=== PATIENT | male | born 1990 | race African-American/Black ===

== ENCOUNTER 2019-01-25 16:45 | Emergency (ER) | payer OTHER ==
[2019-01-25] MEDS ORDERED: ASPIRIN 81 MG CHEWABLE TABLETS PO ONE (16:49)
[2019-01-25 16:51] VITALS: BMI 53.1
--- NOTE | 2019-01-25 16:52 | PDOC ---
Rapid Medical Evaluation Chief Complaint: Shortness of Breath Time Seen by Provider: 01/25/19 16:47 Medical Evaluation: 01/25/19 16:48 28 year old male c/o left sided chest pain and shortness of breath since this morning. PE: patient alert ox, breath sounds clear, diaphoretic chest not tender A: chest pain P: labs EKG chest xray patient to the ER for further management of care Discharge Disposition - Diagnosis Chest pain Qualifiers: Chest pain type: chest pain on breathing Qualified Code(s): R07.1 - Chest pain on breathing; R07.81 - Pleurodynia - Referrals - Patient Instructions - Post Discharge Activity
--- NOTE | 2019-01-25 16:54 | PDOC ---
History of Present Illness - General Chief Complaint: Shortness of Breath Stated Complaint: SOB Time Seen by Provider: 01/25/19 16:47 - History of Present Illness Initial Comments: 28yo M with no signficant PMH presenting with chest pain. Patient states he work up with this pain which he describes as squeezing. While the pain was not bad when it started, it has gradually gotten worse and is now rated 8/10. Patient endorses shortness of breath. The pain gets worse upon taking a breath. It is non-palpable and non-radiating. No nausea or vomiting. Patient reports diaphoresis. He has never felt pain like this before. Took one advil but it provided no relief. Saw a special effects makeup artist upon recommendation by his primary care doctor and had a negative workup. Has never had a stress test or ECHO. Patient is <1ppd smoker x 3-4 years. No personal or family history of [place]. Patient drives long distances on a daily basis, up to 8 or 9 hours at a time. No hemoptysis, no recent surgical history, no hormone use, no history of DVT or PE. No fevers, chills, or abdominal pain. Past History - Past Medical History Allergies/Adverse Reactions: Allergies Allergy/AdvReac Type Severity Reaction Status Date / Time No Known Allergies Allergy Verified 01/25/19 16:51 Home Medications: Ambulatory Orders Azithromycin [Zithromax 250mg Tablets -] 250 mg PO DAILY #4 tab 01/25/19 COPD: No Other medical history: obesity - Suicide/Smoking/Psychosocial Hx Smoking History: Never smoked Information on smoking cessation initiated: No Hx Alcohol Use: No Drug/Substance Use Hx: No Review of Systems - Review of Systems Comments:: Constitutional: no fever, no chills HEENT: no throat pain, no dysphagia Cardiovascular: +chest pain, no palpitations Respiratory: no cough, +shortness of breath Gastrointestinal: no abdominal pain, no nausea Genitourinary: no dysuria, no frequency Musculoskeletal: no myalgia, no arthralgia Skin: no rash, no itching Neurologic: no headache, no weakness *Physical Exam - Vital Signs Last Vital Signs Temp Pulse Resp BP Pulse Ox 99.7 F H 97 H 18 141/75 97 01/25/19 16:48 01/25/19 16:48 01/25/19 16:48 01/25/19 16:48 01/25/19 16:48 - Physical Exam Comments: General: Awake, alert, and fully oriented, in no acute distress, morbidly obese Head: No signs of trauma, diaphoretic Eyes: EOMI, sclera anicteric ENT: Moist mucus membranes Neck: Normal ROM, supple Lungs: Lungs clear, Normal breath sounds Cardio: Regular rhythm, S1 and S2 present Abdomen: Soft, nontender Extremities: Normal range of motion, Distal pulses present, No calf tenderness bilaterally SKIN: Warm, Dry, normal turgor Neurologic: Cranial nerves II through XII grossly intact. Normal speech ED Treatment Course - LABORATORY CBC & Chemistry Diagram: 01/25/19 17:30 01/25/19 17:30 Medical Decision Making - Medical Decision Making 28yo M with no signficant PMH presenting with chest pain. DDX including but not limited to ACS, PE, PNA, MSK, GERD EKG: rate 100, NSR, with s1q3t3 pattern (no prior EKGs available) Increased suspicion for PE given this sign of R. heart strain CBC WBC 11.6 K/mm3 (4.0-10.0) H 01/25/19 17:30 RBC 4.76 M/mm3 (4.00-5.60) 01/25/19 17:30 Hgb 12.5 GM/dL (11.7-16.9) 01/25/19 17:30 Hct 39.2 % (35.4-49) 01/25/19 17:30 MCV 82.2 fl (80-96) 01/25/19 17:30 MCH 26.2 pg (25.7-33.7) 01/25/19 17:30 MCHC 31.9 g/dl (32.0-35.9) L 01/25/19 17:30 RDW 15.4 % (11.9-15.9) 01/25/19 17:30 Plt Count 169 K/MM3 (134-434) 01/25/19 17:30 MPV 8.0 fl (7.5-11.1) 01/25/19 17:30 Absolute Neuts (auto) 7.3 K/mm3 (1.5-8.0) 01/25/19 17:30 Neutrophils % 62.4 % (42.8-82.8) 01/25/19 17:30 Lymphocytes % 25.8 % (8-40) D 01/25/19 17:30 Monocytes % 10.2 % (3.8-10.2) 01/25/19 17:30 Eosinophils % 0.6 % (0-4.5) 01/25/19 17:30 Basophils % 1.0 % (0-2.0) 01/25/19 17:30 Nucleated RBC % 0 % (0-0) 01/25/19 17:30 Slight leukocytosis, WBC=11.6 No anemia CMP Sodium 139 mmol/L (136-145) 01/25/19 17:30 Potassium 4.4 mmol/L (3.5-5.1) 01/25/19 17:30 Chloride 105 mmol/L (98-107) 01/25/19 17:30 Carbon Dioxide 30 mmol/L (21-32) 01/25/19 17:30 Anion Gap 4 MMOL/L (8-16) L 01/25/19 17:30 BUN 12 mg/dL (7-18) 01/25/19 17:30 Creatinine 0.9 mg/dL (0.55-1.3) 01/25/19 17:30 Est GFR (CKD-EPI)AfAm 133.30 01/25/19 17:30 Est GFR (CKD-EPI)NonAf 115.01 01/25/19 17:30 Random Glucose 102 mg/dL (74-106) 01/25/19 17:30 Calcium 8.6 mg/dL (8.5-10.1) 01/25/19 17:30 Magnesium 2.3 mg/dL (1.8-2.4) 01/25/19 17:30 Total Bilirubin 0.3 mg/dL (0.2-1) 01/25/19 17:30 AST 47 U/L (15-37) H 01/25/19 17:30 ALT 77 U/L (13-61) H 01/25/19 17:30 Alkaline Phosphatase 83 U/L (45-117) 01/25/19 17:30 Creatine Kinase 176 U/L (26-308) 01/25/19 17:30 Creatine Kinase Index 0.5 % (0.0-5.0) 01/25/19 17:30 CK-MB (CK-2) < 1.0 ng/mL (0.5-3.6) 01/25/19 17:30 Troponin I < 0.02 ng/ml (0.00-0.05) 01/25/19 17:30 Total Protein 8.0 g/dl (6.4-8.2) 01/25/19 17:30 Albumin 3.7 g/dl (3.4-5.0) 01/25/19 17:30 Electrolytes unremarkable Tpn undetectable D-Dimer 536, elevated CXR: "2 views of the chest is submitted. There are no prior studies for comparison. There is a weak inspiration with prominent mediastinum and increased central markings with elevated right hemidiaphragm. An acute chest process is not seen. The bones appear intact and the soft tissues are excessive. Correlation recommended. " Pending CTA report Patient given 1g Ofirmev; reports improved pain, now rated 5/10 Rectal temp 98.6 01/25/19 20:04 CTA: "Multiplanar imaging was performed following the intravenous administration of nonionic contrast. No prior CT studies are available at this facility for direct comparison. There is no CT evidence of central pulmonary embolism. Evaluation of the segmental and subsegmental vessels is limited due to the degree of contrast opacification as well as respiratory motion artifact. No gross embolus is seen within the peripheral vasculature. A small left pleural effusion is noted. Left posterior basilar opacity is seen suggestive of an infiltrate. An approximately 2.4 x 2 x 1.5 cm nonspecific subpleural nodule is seen within the superior segment of the left upper lobe medially (transaxial images 25 - 30). Minimal to mild right upper lobe and lingular discoid atelectasis/scarring. Several nonspecific slightly prominent prevascular mediastinal lymph nodes are noted with a 0.9 cm short axis diameter. The trachea and central bronchi demonstrate no obvious abnormality. There is no definite cardiac enlargement. No pericardial effusion is seen. No aortic aneurysm is noted. The osseous structures demonstrate no gross acute pathology. The partially imaged liver demonstrates diffuse fatty infiltration. There is also partial imaging of the spleen which measures at least 14 cm in length. Impression: No CT evidence of central pulmonary embolism. Evaluation at the segmental and subsegmental levels is limited. No obvious embolus is seen within the peripheral vasculature. Mild left posterior basilar opacity is seen suggestive of an infiltrate. A small left pleural effusion is noted. A nonspecific 2.4 x 2 x 1.5 cm left lower lobe superior segment subpleural nodule is noted medially. Direct comparison with previous CT studies is suggested if available from a different facility. If prior studies are not available correlation with 2 - 4 week follow-up CT is essential to document at least partial resolution. Several nonspecific mildly prominent mediastinal lymph nodes are seen. Hepatic steatosis is noted. Enlargement of the partially imaged spleen is seen. " 01/25/19 20:43 Will treat for PNA Azithromycin 500 ordered Plan for discharge 01/25/19 20:51 *DC/Admit/Observation/Transfer Diagnosis at time of Disposition: Pneumonia Chest pain Qualifiers: Chest pain type: chest pain on breathing Qualified Code(s): R07.1 - Chest pain on breathing - Discharge Dispostion Disposition: HOME Condition at time of disposition: Improved - Prescriptions Prescriptions: Azithromycin [Zithromax 250mg Tablets -] 250 mg PO DAILY #4 tab - Referrals Referrals: Ming Singh [Primary Care Provider] - - Patient Instructions Printed Discharge Instructions: DI for Pneumonia -- Adult Additional Instructions: You came into the ED for chest pain. We performed blood work which was within normal limits. A CT scan of your chest did not show a blood clot. It did show an infiltrate which we will treat for pneumonia. Antibiotics prescription sent to your pharmacy. You can take [id number] tylenol or motrin for pain. Follow the instructions on the medication bottle. Call your primary care doctor tomorrow morning and make an appointment for the next 2-3 days to discuss this ED visit and to further evaluate your chest pain. Bring your paperwork with you to the appointment to show your doctor. There was a nonspecific finding on the CT for which you should receive a follow-up CT in the next 2-4 weeks. Your workup is not complete until you do so. Call for emergency medicine services or go to the emergency room right away if you have symptoms of a heart attack, including: Chest pain, which may feel like a crushing weight A sense of fullness, squeezing, or pressure in the chest Rapid, irregular heartbeat Pain, tingling or numbness in the left shoulder and arm, the neck or jaw, or the right arm Sweating Nausea or vomiting Lightheadedness, weakness, or fainting Shortness of breath If you think you have an emergency, call for medical help right away. - Post Discharge Activity
[2019-01-25] MEDS ORDERED: ASPIRIN 81 MG CHEWABLE TABLETS ONE (17:08)
[2019-01-25] MEDS ORDERED: ACETAMINOPHEN 1000 MG/100 ML VIAL (NON FORMULARY) IVPB ONE (17:48)
[2019-01-25 17:49] LABS: EOS % 0.6 % (0-4.5); HEMATOCRIT 39.2 % (35.4-49); HEMOGLOBIN 12.5 GM/dL (11.7-16.9); LYMPH % 25.8 % (8-40); MCH 26.2 pg (25.7-33.7); MCHC 31.9 g/dl (32.0-35.9); MEAN CELL VOLUME 82.2 fl (80-96); MONO % 10.2 % (3.8-10.2); NEUT % 62.4 % (42.8-82.8); PLATELET COUNT 169 K/MM3 (134-434); RBC 4.76 M/mm3 (4.00-5.60); RDW 15.4 % (11.9-15.9); WHITE BLOOD COUNT 11.6 K/mm3 (4.0-10.0)
[2019-01-25] MEDS ORDERED: ACETAMINOPHEN INJECTION 100 ML IVPB ONE (18:08)
[2019-01-25 18:12] LABS: INR 1.22 (0.83-1.09); PROTHROMBIN TIME (PATIENT) 14.4 SEC (9.7-13.0)
--- NOTE | 2019-01-25 18:21 | PDOC ---
Documentation entered by Sunni Shook SCRIBE, acting as scribe for Jazlyn Oliva MD. Jazlyn Oliva MD: This documentation has been prepared by the Bouchra camejo Renju, SCRIBE, under my direction and personally reviewed by me in its entirety. I confirm that the documentation accurately reflects all work, treatment, procedures, and medical decision making performed by me. Attending Attestation - Resident Resident Name: Mindy Ramirez - ED Attending Attestation I have performed the following: I have examined & evaluated the patient, The case was reviewed & discussed with the resident, I agree w/resident's findings & plan - HPI HPI: 01/25/19 17:49 [id number] with no past medical history who presents to the emergency department for evaluation of worsening pleuritic left sided nonradiating chest pain and shortness of breath since waking up this morning. Endorses associated diaphoresis. Patient reports taking advil with no relief to his symptoms. Denies swelling of extremities, recent travels, hemoptysis, history of clots, and family history of [place]. Denies nausea, vomiting, fevers, and chills. he endorses long drives and periods of immobilization, that can last up to 8-9 hours at a time. 01/25/19 18:15 - Physicial Exam PE: 01/25/19 17:49 NAD, +diaphoretic. EOMI, PERRL, nl conjunctiva, anicteric; neck supple. lungs clear, poor inspiratory effort. +tachycardic, no murmur, abdomen soft nontender , obese. Back nontender. SANTANA x4, no focal neuro deficits. Bilateral peripheral edema. normal color for ethnicity, [facility]. 01/25/19 18:16 - Medical Decision Making 01/25/19 18:16 See HPI for details. Prior notes reviewed, including admissions, discharges and consultations. Vital signs reviewed, wnl. LGF, no systemic findings. DDx chest pain: ACS, coronary vasospasm, NSTEMI, arrhythmia, unstable angina, PE , dissection, PUD, esophageal spasm, GERD, gastritis, costochondritis, pneumonia , pleurisy, pericarditis/myocarditis. dehydration, electrolyte/metabolic derangements. laboratory results and imaging reviewed - initation from [facility], basic labs and lytes wnl, mild leukocytosis noted. CXR_limited Cardiac panel_negative EKG sinus tachycardia at 100 bpm, no interval abnormalities, narrow QRS, ST and T wave segments and morphology normal. Nonspecific T wave abnormalities with TWI in inferior leads, appearance of S1Q3T3 ED course - well's score moderate risk with PE as equal/top likelihood, tachycardia and prolonged periods of immobilization - dimer is appropriate, but with mod to high risk, will need CTA to eval for PE. he is normotensive, so doubt massive. - analgesia, ASA and tylenol given. - pocus echo unremarkable, normal EF, no effusion, RV<LV.. - alternative etiology could be infectious/atypical pna - s/o to overnight team pending imaging and ultimate dispo 01/26/19 15:10 Heart Score/ECG Review #1 ECG reviewed & interpreted by me at: 16:45 General ECG Interpretation: Sinus Rhythm, Normal Intervals Compared to previous ECG there are: Previous ECG unavail 01/25/19 18:20 EKG sinus tachycardia at 100 bpm, no interval abnormalities, narrow QRS, ST and T wave segments and morphology normal. Nonspecific T wave abnormalities with TWI in inferior leads, appearance of S1Q3T3
[2019-01-25 19:16] LABS: ALBUMIN 3.7 g/dl (3.4-5.0); ALK PHOS 83 U/L (45-117); ANION GAP 4 MMOL/L (8-16); BILIRUBIN,TOTAL 0.3 mg/dL (0.2-1); BLOOD UREA NITROGEN 12 mg/dL (7-18); CALCIUM 8.6 mg/dL (8.5-10.1); CHLORIDE 105 mmol/L (98-107); CO2 30 mmol/L (21-32); CREATININE 0.9 mg/dL (0.55-1.3); GLUCOSE,RANDOM 102 mg/dL (74-106); SGPT/ALT 77 U/L (13-61); SODIUM 139 mmol/L (136-145)
[2019-01-25 19:17] LABS: MAGNESIUM 2.3 mg/dL (1.8-2.4); POTASSIUM 4.4 mmol/L (3.5-5.1); SGOT/AST 47 U/L (15-37)
[2019-01-25 20:20] VITALS: TEMP 99.4
[2019-01-25] MEDS ORDERED: AZITHROMYCIN 250 MG TABLET PO ONE (20:52)
[2019-01-25 21:08] VITALS: BP 146/75; PULSE 87
[2019-01-25] MEDS ORDERED: AZITHROMYCIN 250 MG TABLET ONE (21:12)
--- NOTE | 2019-01-26 17:22 | EKG ---
Test Reason : Blood Pressure : / mmHG Vent. Rate : 100 BPM Atrial Rate : 100 BPM P-R Int : 162 ms QRS Dur : 104 ms QT Int : 376 ms P-R-T Axes : 016 065 014 degrees QTc Int : 485 ms NORMAL SINUS RHYTHM PROLONGED QT ABNORMAL ECG NO PREVIOUS ECGS AVAILABLE Confirmed by CARIN HITCHCOCK MD ([id number]) on 01/26/2019 5:21:37 PM Referred By: Confirmed By:CARIN HITCHCOCK MD
== END 2019-01-25 21:18 | disposition home or self-care (01) ==
LOC: JER 16:45
PROC: 3E033NZ Introduction of Analgesics, Hypnotics, Sedatives into Peripheral Vein, Percutaneous Approach (ICD-10-PCS; principal; 2019-01-25)
DX: J18.9 Pneumonia, unspecified organism (principal)
CPT/HCPCS: 36415; 71046-TC-FY; 71275-TC; 80053; 82550; 82553; 83735; 84484; 85025; 85379; 85610; 93005; 93010; 96374; 99283-25; J0131

== ENCOUNTER 2019-02-07 11:59 | Inpatient (IN) | payer OTHER | END 2019-02-11 14:28 | disposition E | LOC: JICU 02-08 11:49 → JER 11:59 → JERBED 14:41 → J4W 23:54 ==